=== PATIENT | female | born 1990 | race African-American/Black ===

== ENCOUNTER 2016-10-04 18:59 | Emergency (ER) | payer OTHER ==
[~2016-10-04] VITALS: Ht 154.9 cm; Wt 75.0 kg
[~2016-10-04 18:59] MED LIST: ADVAIR 250/501 DISK IH; ALDACTONE50 MG PO; ASCORBIC ACID500 M3 PO; B COMPLETE1 EACH PO; B-121000 MC2 PO; B-COMPLEX-VITA1 EACH PO; BENADRYL25 MG PO; CANE1 EACH MC; COLACE100 MG PO; CONSTULOSE10 GM/15 M PO; COUMADIN5 MG PO; COUMADIN7.5 MG PO; CYANOCOBALAM1000 MCG PO; DILAUDID2 MG PO; ERGOCALCIF50000 UNIT PO; FARXIGA10 MG PO; FERROUS SULFAT140 MG PO; FLONASE16 G1 BOTH NARES; FOLIC ACID1 MG PO; FUROSEMIDE40 MG PO; HUMALOG100 UNIT/2 SC; INDERAL40 MG PO; JANUVIA100 MG PO; KENALOG,ARISTOC80 GM TP; LANTUS 3 M100 UNITS1 SC; LASIX40 MG PO; MOTRIN IB200 MG PO; OXYCONTIN20 MG PO; PEN-VEE K,VEET250 MG PO; PRAVASTATIN SOD40 MG PO; PROAIR HFA8.5 GM IH; PROMETHAZINE12.5 M1 PO; PROPRANOLOL HCL40 MG PO; PROTONIX40 MG PO; PROVENTIL HFA6.7 GM IH; SPIRONOLACTONE50 MG PO; SYNTHROID112 MCG PO; SYNTHROID150 MCG PO; TRIAMCINOLONE A15 GM TP; VITAMIN B-6100 MG PO; VITAMIN D31000 UNI2 PO; VITAMIN D31000 UNIT PO; VITAMIN K100 MCG PO; WARFARIN SODIUM5 MG PO; XIFAXAN550 MG PO
[2016-10-04 23:13] VITALS: BP 124/67
== END 2016-10-04 23:05 | disposition home or self-care (01) ==
LOC: EXP 18:59 → EME 18:59 → EXP 23:05
DX: S61.411A Laceration without foreign body of right hand, initial encounter (principal); W22.8XXA Striking against or struck by other objects, initial encounter; Z79.01 Long term (current) use of anticoagulants
CPT/HCPCS: 73130; 99281; 99284